=== PATIENT | female | born 1960 | race Caucasian/White ===

== ENCOUNTER → 2018-11-10 | Outpatient (CLI) | payer OTHER ==
--- NOTE | 2018-11-10 10:46 | 2DMMODE ---
[facility] [place] [address] 2 D/M-MODE ECHOCARDIOGRAM Name: VERONICAMIRIAM Room #: [facility]#: [id number] ������������� Admission: 11/10/18 ������������� Attend Phys: Rashad Albert MD Discharge: ��� ������������� ��� Date of : 58 Date of Service: 11/10/18 1046 �� Report #: [id number] �������� ��������������������������������������������[id number] THIS REPORT FOR: //name// APPROVED REPORT Study performed: 11/10/2018 09:14:29 EXAM: Comprehensive 2D, Doppler, and color-flow Echocardiogram Patient Location: Out-Patient Room #: Echo lab 2 Status: routine BSA: 2.17 HR: 73 bpm BP: 136/80 mmHg Rhythm: NSR Other Information Study Quality: Adequate Indications CAD Hypertension/HDD 2D Dimensions RVDd: 30.58 mm IVSd: 12.79 (7-11mm) LVOT Diam: 19.47 (18-24mm) LVDd: 47.62 mm PWd: 14.50 (7-11mm) Ascending Ao: 27.84 (22-36mm) LVDs: 30.81 (25-40mm) Aortic Root: 28.77 mm IVC: 19.00 mm Volumes Left Atrial Volume (Systole) Single Plane 4CH: 54.36 mL Single Plane 2CH: 47.58 mL LA ESV Index: 27.00 mL/m2 Aortic Valve AoV Peak Knostantin.: 2.07 m/s AO Peak Gr.: 17.20 mmHg LVOT Max P.52 mmHg LVOT Max V: 1.37 m/s RICH Vmax: 1.97 cm2 Mitral Valve E/A Ratio: 1.0 MV Decel. Time: 241.27 ms [facility] [address] [address] [place] [address] 2 D/M-MODE ECHOCARDIOGRAM Name: JOSEPH MARTINDAWNA Pond Room #: [facility]#: [id number] ������������� Admission: 11/10/18 ������������� Attend Phys: Rashad Albert MD Discharge: ��� ������������� ��� Date of : 58 Date of Service: 11/10/18 1046 �� Report #: [id number] �������� ��������������������������������������������[id number] MV E Max Konstantin.: 1.09 m/s MV A Konstantin.: 1.05 m/s MV PHT: 69.97 ms IVRT: 73.82 ms Pulmonary Valve PV Peak Konstantin.: 1.12 m/s PV Peak Gr.: 4.98 mmHg Pulmonary Vein P Vein S: 0.60 m/s P Vein A: 0.29 m/s P Vein D: 0.49 m/s P Vein A Dur.: 120.0 msec P Vein S/D Ratio: 1.22 Left Ventricle The left ventricle is normal size. There is normal LV segmental wall motion. There is normal left ventricular wall thickness. Left ventricular systolic function is normal. The left ventricular ejection fraction is within the normal range. LVEF is 60-65%. Grade II - pseudonormal filling dynamics. Right Ventricle The right ventricle is normal size. The right ventricular systolic function is normal. Atria The left atrium size is normal. The right atrium size is normal. Aortic Valve The aortic valve is normal in structure. No aortic regurgitation is present. There is no aortic valvular stenosis. Mitral Valve The mitral valve is normal in structure. There is no mitral valve regurgitation noted. No evidence of mitral valve stenosis. Tricuspid Valve The tricuspid valve is normal in structure. There is no tricuspid valve regurgitation noted. Pulmonic Valve The pulmonary valve is normal in structure. There is no pulmonic valvular regurgitation. Great Vessels The aortic root is normal in size. IVC is normal in size and [facility] [address] [place] [address] 2 D/M-MODE ECHOCARDIOGRAM Name: MIRIAM MARTIN Room #: [facility]#: [id number] ������������� Admission: 11/10/18 ������������� Attend Phys: Rashad Albert MD Discharge: ��� ������������� ��� Date of : 58 Date of Service: 11/10/18 1046 �� Report #: [id number] �������� ��������������������������������������������[id number] collapses >50% with inspiration. Pericardium There is no pericardial effusion. <Conclusion> The left ventricle is normal size. There is normal left ventricular wall thickness. Left ventricular systolic function is normal. The right ventricle is normal size. The left atrium size is normal. The aortic valve is normal in structure. There is no mitral valve regurgitation noted. There is no tricuspid valve regurgitation noted. ��������������������������������������������� <ELECTRONICALLY SIGNED> ���������������������������������������� By: Rashad Albert MD ��������������������������������������������� 11/10/18 1046 1046 1046 Rashad Albert MD /INF
== END ==
LOC: CV 08:30
DX: I25.10 Atherosclerotic heart disease of native coronary artery without angina pectoris (principal); I35.8 Other nonrheumatic aortic valve disorders

== ENCOUNTER → 2019-11-10 | Outpatient (CLI) | payer OTHER | LOC: SJCVCIMAG 09:25 | DX: R06.02 Shortness of breath (principal); R06.09 Other forms of dyspnea; R60.1 Generalized edema; I10 Essential (primary) hypertension; E78.5 Hyperlipidemia, unspecified; E78.00 Pure hypercholesterolemia, unspecified; I25.10 Atherosclerotic heart disease of native coronary artery without angina pectoris; E66.9 Obesity, unspecified; Z79.82 Long term (current) use of aspirin; Z79.899 Other long term (current) drug therapy ==